=== PATIENT | female | born 1995 | race African-American/Black ===

== ENCOUNTER 2020-09-24 18:39 | Emergency (ER) | payer SELFPAY ==
[~2020-09-24] VITALS: Ht 157.5 cm; Wt 63.0 kg
[2020-09-24] MEDS ORDERED: IBUP-2030 MT (19:08)
[2020-09-24] MEDS ORDERED: T3 PO (19:08)
[2020-09-24] MEDS ORDERED: AMOX-424 MT (19:10)
[2020-09-24] MEDS ORDERED: KETOROLAC 60MG/2ML VIAL IM ONE (19:15)
[2020-09-24 19:30] VITALS: BP 118/68
== END 2020-09-24 19:40 | disposition home or self-care (01) ==
LOC: ER 18:39
DX: K08.89 Other specified disorders of teeth and supporting structures (principal)
CPT/HCPCS: 96372; 99283; J1885